=== PATIENT | female | born 1970 | race Caucasian/White ===

== ENCOUNTER 2023-07-12 19:55 | Inpatient (IN) | payer OTHER, SELFPAY ==
[2023-07-12 20:21] VITALS: BMI 22.9
[2023-07-12] MEDS ORDERED: Ondansetron ODT 4 MG TAB PO PRN (20:23)
[2023-07-12] MEDS ORDERED: Electrolyte Replacement Protocol 1 EACH FS PRN (20:30)
[2023-07-12] MEDS: Ondansetron PF 4 MG/2 ML Vial IVP PRN (21:48)
[2023-07-12] MEDS: Morphine 4 MG/ML VIAL SLOW IVP SCH (21:48)
[2023-07-12] MEDS: Sodium Chloride 0.9% 1,000 ML IV SCH (21:50)
[2023-07-13] MEDS: Morphine 2 MG/ML VIAL SLOW IVP PRN (04:00)
[2023-07-13 05:26] LABS: Hematocrit 37.9 % (36.0-47.0); Hemoglobin 12.6 g/dL (12.0-16.0); Mean Corpuscular HGB CONC 33.2 g/dL (32.0-36.0); Mean Corpuscular Hemoglobin 30.7 pg (27.0-31.0); Mean Corpuscular Volume 92.2 fL (78.0-98.0); Mean Platelet Volume 10.8 fL (7.4-10.4); Platelet Count 340 10x3/uL (130-400); RBC Distribution Width 13.2 % (11.5-14.5); Red Blood Cell (RBC) Count 4.11 mill/uL (4.20-5.40)
[2023-07-13 05:36] LABS: Anion Gap 17 mmol/L (10-20); BUN (Urea Nitrogen) 17 mg/dL (9.8-20.1); Calc. Creatinine Clearance 83 mL/min (70-130); Calcium 8.8 mg/dL (7.8-10.44); Carbon Dioxide 20 mmol/L (22-29); Chloride 109 mmol/L (98-107); Estimated GFR 91; Glucose 122 mg/dL (70-105); Magnesium 1.8 mg/dL (1.6-2.6); Potassium 3.7 mmol/L (3.5-5.1); Sodium 142 mmol/L (136-145)
[2023-07-13 06:09] LABS: Band 39 % (5-11); Large Platelets 1.9 % (0-5); Lymphocytes 7 % (21-51); Monocytes 16 % (0-10); Neutrophil 39 % (42-75); Platelet Adequacy Comment Platelets Normal; RBC Morphology Within Normal Limits; Smudge Cells 3.8 %
[2023-07-13] MEDS: Magnesium 2 GM/50 ML(in water) 2 GM in Premix 1 BAG IVPB SCH (08:15)
[2023-07-13] MEDS ORDERED: Phenol 177 ML BOT PO PRN (08:28)
[2023-07-13] MEDS: Morphine 4 MG/ML VIAL SLOW IVP PRN (18:45)
[2023-07-14 06:07] LABS: #Basophils 0.04 10x3/uL (0.0-0.2); %Basophils 0.6 % (0.0-1.0); %Eosinophils 2.3 % (0.0-10.0); %Lymphocytes 38.7 % (21.0-51.0); %Monocytes 12.7 % (0.0-10.0); %Neutrophils 45.4 % (42.0-75.0); Hematocrit 31.4 % (36.0-47.0); Hemoglobin 10.8 g/dL (12.0-16.0); Mean Corpuscular HGB CONC 34.4 g/dL (32.0-36.0); Mean Corpuscular Hemoglobin 32.2 pg (27.0-31.0); Mean Corpuscular Volume 93.7 fL (78.0-98.0); Mean Platelet Volume 10.7 fL (7.4-10.4); Platelet Count 262 10x3/uL (130-400); RBC Distribution Width 13.1 % (11.5-14.5); Red Blood Cell (RBC) Count 3.35 mill/uL (4.20-5.40)
[2023-07-14 06:29] LABS: Anion Gap 12 mmol/L (10-20); BUN (Urea Nitrogen) 10 mg/dL (9.8-20.1); Calc. Creatinine Clearance 89 mL/min (70-130); Calcium 8.7 mg/dL (7.8-10.44); Carbon Dioxide 21 mmol/L (22-29); Chloride 111 mmol/L (98-107); Estimated GFR 98; Glucose 89 mg/dL (70-105); Magnesium 1.7 mg/dL (1.6-2.6); Potassium 3.5 mmol/L (3.5-5.1); Sodium 140 mmol/L (136-145)
[2023-07-14] MEDS: Potassium Chloride 20 MEQ TAB PO SCH (08:27)
[2023-07-14] MEDS: Magnesium 2 GM/50 ML(in water) 2 GM in Premix 1 BAG IVPB SCH (08:28)
[2023-07-14] MEDS: Pantoprazole 40 MG VIAL IVP SCH ×2 (12:11→19:54)
[2023-07-15 07:25] LABS: #Basophils 0.03 10x3/uL (0.0-0.2); %Basophils 0.5 % (0.0-1.0); %Monocytes 9.3 % (0.0-10.0); %Neutrophils 52.9 % (42.0-75.0); Hematocrit 34.4 % (36.0-47.0); Mean Corpuscular Volume 96.9 fL (78.0-98.0); Mean Platelet Volume 10.7 fL (7.4-10.4); Platelet Count 237 10x3/uL (130-400); RBC Distribution Width 12.3 % (11.5-14.5); Red Blood Cell (RBC) Count 3.55 mill/uL (4.20-5.40)
[2023-07-15 07:43] LABS: Anion Gap 16 mmol/L (10-20); BUN (Urea Nitrogen) 6 mg/dL (9.8-20.1); Calc. Creatinine Clearance 97 mL/min (70-130); Calcium 9.1 mg/dL (7.8-10.44); Carbon Dioxide 19 mmol/L (22-29); Chloride 107 mmol/L (98-107); Estimated GFR 105; Glucose 66 mg/dL (70-105); Potassium 3.7 mmol/L (3.5-5.1); Sodium 138 mmol/L (136-145)
[2023-07-15] MEDS ORDERED: Ondansetron PF 4 MG/2 ML Vial ONE (08:09)
[2023-07-15] MEDS ORDERED: Dextrose 50% Abboject 50 ML SYRINGE ONE (08:21)
[2023-07-15] MEDS ORDERED: Lidocaine 2% PF 5 ML VIAL ONE (09:38)
[2023-07-15] MEDS ORDERED: PROPOFOL 20 ML ONE (09:39)
[2023-07-15] MEDS ORDERED: fentaNYL 50 mcg/mL 1 mL Vial ONE (10:09)
[2023-07-15] MEDS ORDERED: MD-Gastroview 120 ML BOT ONE (12:12)
[2023-07-15] MEDS: Metoclopramide HCl 10 MG TAB PO SCH (20:16)
[2023-07-16 06:09] LABS: #Basophils Less than 0.03 10x3/uL (0.0-0.2); %Basophils 0.3 % (0.0-1.0); %Eosinophils 0.4 % (0.0-10.0); %Lymphocytes 34.6 % (21.0-51.0); %Monocytes 8.8 % (0.0-10.0); %Neutrophils 55.3 % (42.0-75.0); Hematocrit 31.9 % (36.0-47.0); Hemoglobin 11.1 g/dL (12.0-16.0); Mean Corpuscular HGB CONC 34.8 g/dL (32.0-36.0); Mean Corpuscular Hemoglobin 31.8 pg (27.0-31.0); Mean Corpuscular Volume 91.4 fL (78.0-98.0); Mean Platelet Volume 10.5 fL (7.4-10.4); Platelet Count 276 10x3/uL (130-400); RBC Distribution Width 12.2 % (11.5-14.5); Red Blood Cell (RBC) Count 3.49 mill/uL (4.20-5.40)
[2023-07-16 06:33] LABS: Anion Gap 17 mmol/L (10-20); BUN (Urea Nitrogen) 5 mg/dL (9.8-20.1); Calc. Creatinine Clearance 94 mL/min (70-130); Calcium 8.9 mg/dL (7.8-10.44); Carbon Dioxide 23 mmol/L (22-29); Chloride 102 mmol/L (98-107); Estimated GFR 105; Glucose 96 mg/dL (70-105); Potassium 3.3 mmol/L (3.5-5.1); Sodium 139 mmol/L (136-145)
[2023-07-16] MEDS: Pantoprazole DR 40 MG TAB PO SCH (08:13)
[2023-07-16] MEDS: Potassium Chloride 20 MEQ in Premix 1 BAG IVPB SCH (08:13)
[2023-07-16 23:06] LABS: Potassium 3.2 mmol/L (3.5-5.1)
[2023-07-16] MEDS: Potassium Chloride 20 MEQ TAB PO SCH (23:31)
[2023-07-17 05:14] LABS: #Basophils 0.03 10x3/uL (0.0-0.2); %Basophils 0.4 % (0.0-1.0); %Eosinophils 0.9 % (0.0-10.0); %Lymphocytes 43.1 % (21.0-51.0); %Monocytes 7.9 % (0.0-10.0); %Neutrophils 47.3 % (42.0-75.0); Hematocrit 31.7 % (36.0-47.0); Hemoglobin 10.8 g/dL (12.0-16.0); Mean Corpuscular HGB CONC 34.1 g/dL (32.0-36.0); Mean Corpuscular Hemoglobin 30.8 pg (27.0-31.0); Mean Corpuscular Volume 90.3 fL (78.0-98.0); Mean Platelet Volume 10.8 fL (7.4-10.4); Platelet Count 270 10x3/uL (130-400); RBC Distribution Width 12.4 % (11.5-14.5); Red Blood Cell (RBC) Count 3.51 mill/uL (4.20-5.40)
[2023-07-17 05:39] LABS: Anion Gap 12 mmol/L (10-20); BUN (Urea Nitrogen) 4 mg/dL (9.8-20.1); Calc. Creatinine Clearance 91 mL/min (70-130); Calcium 8.8 mg/dL (7.8-10.44); Carbon Dioxide 25 mmol/L (22-29); Chloride 108 mmol/L (98-107); Estimated GFR 101; Glucose 95 mg/dL (70-105); Potassium 3.7 mmol/L (3.5-5.1); Sodium 141 mmol/L (136-145)
[2023-07-17] MEDS: Acetaminophen 325 MG TAB PO PRN (07:47)
[2023-07-17] MEDS: Fleet Saline Enema 133 ML BOT PR SCH (07:48)
[2023-07-17 12:11] VITALS: BMI 22.9
[2023-07-17] MEDS ORDERED: Lidocaine 1% PF 5 ML VIAL ONE (13:15)
[2023-07-17] MEDS ORDERED: PROPOFOL 40 ML ONE (13:16)
[2023-07-17] MEDS ORDERED: PHENYLEPHRINE-NS 100 MCG/ML 10 ML SYRINGE ONE (13:45)
[2023-07-17 17:11] VITALS: BP 126/86; TEMP 98.1
== END 2023-07-17 15:38 | disposition home or self-care (01) | DRG 392 ==
LOC: SURG A 19:55 → INTOOBSV 19:55 → OBSVTOIN 07-13 15:45
PROVIDERS: ADMIT Physician Assistant; ATTEND Internal Medicine
PROC: 0DJ08ZZ Inspection of Upper Intestinal Tract, Via Natural or Artificial Opening Endoscopic (ICD-10-PCS; principal; 2023-07-15)
PROC: 0DJD8ZZ Inspection of Lower Intestinal Tract, Via Natural or Artificial Opening Endoscopic (ICD-10-PCS; 2023-07-17)
DX: R10.9 Unspecified abdominal pain (principal); K56.7 Ileus, unspecified; D72.829 Elevated white blood cell count, unspecified; Z85.038 Personal history of other malignant neoplasm of large intestine; Z90.49 Acquired absence of other specified parts of digestive tract; Z79.899 Other long term (current) drug therapy
CPT/HCPCS: 36415; 36416; 74250; 80048; 82105; 82378; 83735; 85025; 96374; 96375; 96376; C9113; G0378; J2001; J2270; J2272; J2405; J2704; J3010; J3475; J3480; J7050; J7999; Q9963